=== PATIENT | male | born 1995 | race Caucasian/White ===

== ENCOUNTER 2019-02-13 08:15 | Inpatient (IN) | payer OTHER ==
[2019-02-13 08:33] VITALS: BMI 24.2
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
[2019-02-13] MEDS ORDERED: METHOCARBAMOL 500 MG TABLET PO PRN (09:45)
[2019-02-13] MEDS ORDERED: MAGNESIUM HYDROX 2400MG/30ML ORAL SUSPENSION 30 ML CUP PO PRN (09:45)
[2019-02-13] MEDS ORDERED: IBUPROFEN 400 MG TABLET (FP) PO PRN (09:45)
[2019-02-13] MEDS ORDERED: BISMUTH SUBSALICYLATE 524 MG/30 ML UD PO PRN (09:45)
[2019-02-13] MEDS ORDERED: cloNIDine HCL 0.1 MG TABLET PO PRN (09:45)
[2019-02-13] MEDS ORDERED: MAG HYDROX/AL HYDROX/SIMETH 30 ML UNIT-DOSE CUP PO PRN (09:45)
[2019-02-13] MEDS ORDERED: NICOTINE POLACRILEX 2 MG GUM BUC PRN (09:45)
[2019-02-13] MEDS ORDERED: MELATONIN 5 MG TABLETS PO PRN (09:45)
[2019-02-13] MEDS ORDERED: MAGNESIUM CITRATE 300 ML BOTTLE PO PRN (09:45)
[2019-02-13] MEDS ORDERED: ACETAMINOPHEN 325 MG TABLET (FP) PO PRN ×2 (09:45)
[2019-02-13] MEDS ORDERED: MENTHOL/PHENOL 1 EACH UD MM PRN (09:45)
[2019-02-13] MEDS ORDERED: METHADONE HCL 10 MG TABLET (FOR DETOX USE ONLY) PO ONE ×2 (09:54→23:00)
--- NOTE | 2019-02-13 10:26 | EKG ---
Test Reason : Blood Pressure : / mmHG Vent. Rate : 073 BPM Atrial Rate : 073 BPM P-R Int : 132 ms QRS Dur : 084 ms QT Int : 426 ms P-R-T Axes : 085 084 067 degrees QTc Int : 469 ms SINUS RHYTHM WITH MARKED SINUS ARRHYTHMIA OTHERWISE NORMAL ECG NO PREVIOUS ECGS AVAILABLE Confirmed by MICHAEL VALLADARES MD ([id number]) on 02/13/2019 10:25:53 AM Referred By: Confirmed By:MICHAEL VALLADARES MD
[2019-02-13] MEDS: diazePAM 5 MG TABLET PO PRN (11:06)
[2019-02-13] MEDS: PRENATAL VITAMINS W/ FOLIC ACID TABLET (FP) PO SCH (11:07)
[2019-02-13] MEDS: NICOTINE 21 MG/24 HOURS TOPICAL PATCH TD SCH (11:07)
[2019-02-13 14:06] LABS: HEMATOCRIT 39.8 % (35.4-49); HEMOGLOBIN 13.2 GM/dL (11.7-16.9); MCH 32.4 pg (25.7-33.7); MCHC 33.1 g/dl (32.0-35.9); MEAN CELL VOLUME 97.8 fl (80-96); MEAN PLT VOLUME 9.5 fl (7.5-11.1); PLATELET COUNT 270 K/MM3 (134-434); RBC 4.07 M/mm3 (4.00-5.60); RDW 13.8 % (11.9-15.9); WHITE BLOOD COUNT 5.2 K/mm3 (4.0-10.0)
[2019-02-13] MEDS: GABAPENTIN 300 MG CAPSULE (FP) PO SCH ×2 (14:15→22:18)
[2019-02-13 14:39] LABS: SICKLE CELL SCREEN NEGATIVE (NEGATIVE)
--- NOTE | 2019-02-13 17:32 | CONSULT ---
[facility] Psychiatric Consult - Data Date of interview: 02/13/19 Admission source: [facility] Identifying data: First admission to [facility] for this 23 y/o [place] male self-referred for detoxification (heroin, cocaine). Examined on . Patient is single, no children, homeless, unemployed and deprived of any source of income. Substance Abuse History: Confirmed by the patient in this session. Details in current [facility] report as follows : Smoking history: Current every day smoker. Have you smoked in the past 12 months: Yes. Aproximately how many cigarettes per day: 20. Cigars Per Day: 0. Hx Chewing Tobacco Use: No. Initiated information on smoking cessation: Yes. 'Breaking Loose' booklet given: . - Substance & Tx. History. Hx Alcohol Use: No. Hx Substance Use: Yes. Substance Use Type: Cocaine, Heroin. Hx Substance Use Treatment: Yes ([facility] 12/23). - Substances abused. Heroin. Substance route: Injection. Frequency: Daily. Amount used: 2 gram. Age of first use: 16. Date of last use : 02/13/19. Cocaine. Substance route: Injection. Frequency: Daily. Amount used: 1gram. Age of first use: 16. Date of last use: 02/13/19 Medical History: Remarkable for hepatitis C (not treated). Psychiatric History: Patient denies. Physical/Sexual Abuse/Trauma History: No reported history of abuse. Stressors : homelessness, unemployment, lack of vocational skills, no support network, separation from relatives, low level of education and addictions. Additional Comment: Urine drug screen results: DAWOOD-Cocaine, FEN-Fentanyl, MOP- Opiates, MTD-Methadone, BZO-Benzodiazepines. Noted. Mental Status Exam - Mental Status Exam Alert and Oriented to: Time, Place, Person Cognitive Function: Good Patient Appearance: Unkempt, Disheveled Mood: Nervous, Withdrawn, Anxious Affect: Mood Congruent, Constricted Patient Behavior: Fatigued, Cooperative Speech Pattern: Clear (more comfortable in [place] but able to make self understood by this consumer loan underwriter) Voice Loudness: Normal Thought Process: Goal Oriented Thought Disorder: Not Present Hallucinations: Denies Suicidal Ideation: Denies Homicidal Ideation: Denies Insight/Judgement: Poor Sleep: Fair Appetite: Fair Muscle strength/Tone: Normal Gait/Station: Other (not observed; patient in bed for entire interview) Psychiatric Findings - Problem List ([place] 1, 2,3) (1) Opioid dependence with withdrawal Current Visit: Yes Status: Acute (2) Cocaine dependence Current Visit: Yes Status: Chronic (3) Nicotine dependence Current Visit: Yes Status: Chronic (4) Substance induced mood disorder Current Visit: Yes Status: Chronic - Initial Treatment Plan Initial Treatment Plan: Psychoeducation. Sleep hygiene. Detoxification in progress. Support. NA/AA meetings. Relapse prevention (MAT choices) : briefly discussed with the patient. Groups. Observation.
[2019-02-13 17:46] LABS: PH,URINE 5.5 (5.0-8.0); URINE APPEARANCE CLEAR; URINE BILIRUBIN NEGATIVE (NEGATIVE); URINE COLOR DK YELLOW; URINE GLUCOSE (UA) NEGATIVE (NEGATIVE); URINE KETONE NEGATIVE (NEGATIVE); URINE LEUK ESTERASE NEGATIVE (NEGATIVE); URINE NITRITE NEGATIVE (NEGATIVE); URINE PROTEIN NEGATIVE (NEGATIVE)
[2019-02-13] MEDS: hydrOXYzine PAMOATE 25 MG CAPSULE (FP) PO PRN (22:17)
[2019-02-13] MEDS: THIAMINE HCL 100 MG TABLET (FP) PO SCH (22:19)
[2019-02-13 23:51] LABS: ALBUMIN 4.3 g/dl (3.4-5.0); ALK PHOS 92 U/L (45-117); ANION GAP 7 MMOL/L (8-16); BILIRUBIN,TOTAL 0.7 mg/dL (0.2-1); BLOOD UREA NITROGEN 15 mg/dL (7-18); CALCIUM 9.4 mg/dL (8.5-10.1); CHLORIDE 103 mmol/L (98-107); CO2 30 mmol/L (21-32); CREATININE 0.8 mg/dL (0.55-1.3); GLUCOSE,RANDOM 80 mg/dL (74-106); POTASSIUM 4.1 mmol/L (3.5-5.1); SGOT/AST 197 U/L (15-37); SGPT/ALT 392 U/L (13-61); SODIUM 139 mmol/L (136-145); TOT PROT 8.5 g/dl (6.4-8.2)
[2019-02-14] MEDS: GABAPENTIN 300 MG CAPSULE (FP) PO SCH ×3 (05:31→22:08)
[2019-02-14] MEDS: PRENATAL VITAMINS W/ FOLIC ACID TABLET (FP) PO SCH (09:53)
[2019-02-14] MEDS ORDERED: METHADONE HCL 10 MG TABLET (FOR DETOX USE ONLY) PO ONE (10:00)
[2019-02-14] MEDS: diazePAM 5 MG TABLET PO PRN ×2 (10:17→22:09)
[2019-02-14] MEDS: NICOTINE 21 MG/24 HOURS TOPICAL PATCH TD SCH (10:17)
--- NOTE | 2019-02-14 11:26 | PN ---
BHS COWS - Scale Resting Pulse: 0= [place] 80 or Below Sweatin=Flushed/Facial Moisture Restless Observation: 1= Difficult to Sit Still Pupil Size: 0= Normal to Room Light Bone or Joint Aches: 2= Severe Diffuse Aches Runny Nose/ Eye Tearin= Nasal Congestion GI Upset > 30mins: 2= Nausea/Diarrhea Tremor Observation of Outstretched Hands: 2= Slight Tremor Visible Yawning Observation: 1= 1-2x During Session Anxiety or Irritability: 2=Irritable/Anxious Goose Flesh Skin: 0=Smooth Skin COWS Score: 13 BHS Progress Note (SOAP) Subjective: Generalized pain, chills, abdominal cramps and interrupted sleep Objective: 02/14/19 11:24 Vital Signs 02/14/19 02/14/19 02/14/19 03:30 06:22 10:00 Temperature 96.7 F L 97.9 F Pulse Rate 78 76 Respiratory 18 18 16 Rate Blood Pressure 84/53 L 120/77 Laboratory Last Values WBC 5.2 K/mm3 (4.0-10.0) 02/13/19 10:50 RBC 4.07 M/mm3 (4.00-5.60) 02/13/19 10:50 Hgb 13.2 GM/dL (11.7-16.9) 02/13/19 10:50 Hct 39.8 % (35.4-49) 02/13/19 10:50 MCV 97.8 fl (80-96) H 02/13/19 10:50 MCH 32.4 pg (25.7-33.7) 02/13/19 10:50 MCHC 33.1 g/dl (32.0-35.9) 02/13/19 10:50 RDW 13.8 % (11.9-15.9) 02/13/19 10:50 Plt Count 270 K/MM3 (134-434) 02/13/19 10:50 MPV 9.5 fl (7.5-11.1) 02/13/19 10:50 Sickle Cell Screen Negative (NEGATIVE) 02/13/19 10:50 Sodium 139 mmol/L (136-145) 02/13/19 10:50 Potassium 4.1 mmol/L (3.5-5.1) 02/13/19 10:50 Chloride 103 mmol/L (98-107) 02/13/19 10:50 Carbon Dioxide 30 mmol/L (21-32) 02/13/19 10:50 Anion Gap 7 MMOL/L (8-16) L 02/13/19 10:50 BUN 15 mg/dL (7-18) 02/13/19 10:50 Creatinine 0.8 mg/dL (0.55-1.3) 02/13/19 10:50 Creat Clearance w eGFR 119.80 (>60) 02/13/19 10:50 Random Glucose 80 mg/dL (74-106) 02/13/19 10:50 Calcium 9.4 mg/dL (8.5-10.1) 02/13/19 10:50 Total Bilirubin 0.7 mg/dL (0.2-1) 02/13/19 10:50 AST 197 U/L (15-37) H 02/13/19 10:50 ALT 392 U/L (13-61) H 02/13/19 10:50 Alkaline Phosphatase 92 U/L (45-117) 02/13/19 10:50 Total Protein 8.5 g/dl (6.4-8.2) H 02/13/19 10:50 Albumin 4.3 g/dl (3.4-5.0) 02/13/19 10:50 Urine Color Dk yellow 02/13/19 16:00 Urine Appearance Clear 02/13/19 16:00 Urine pH 5.5 (5.0-8.0) 02/13/19 16:00 Ur Specific [place] 1.025 (1.010-1.035) 02/13/19 16:00 Urine Protein Negative (NEGATIVE) 02/13/19 16:00 Urine Glucose (UA) Negative (NEGATIVE) 02/13/19 16:00 Urine Ketones Negative (NEGATIVE) 02/13/19 16:00 Urine Blood Negative (NEGATIVE) 02/13/19 16:00 Urine Nitrite Negative (NEGATIVE) 02/13/19 16:00 Urine Bilirubin Negative (NEGATIVE) 02/13/19 16:00 Urine Urobilinogen 1.0 mg/dL (0.2-1.0) 02/13/19 16:00 Ur Leukocyte Esterase Negative (NEGATIVE) 02/13/19 16:00 RPR Titer Nonreactive (NONREACTIVE) 02/13/19 10:50 HIV 1&2 Antibody Screen Negative 02/13/19 10:50 HIV P24 Antigen Negative 02/13/19 10:50 Labs note Elevated liver enzymes-patient has untreated hepatitis C Assessment: 02/14/19 11:25 Withdrawal sx Plan: Continue detox Encourage oral fluid intake
[2019-02-14] MEDS: hydrOXYzine PAMOATE 25 MG CAPSULE (FP) PO PRN (13:29)
[2019-02-14] MEDS: THIAMINE HCL 100 MG TABLET (FP) PO SCH (22:08)
[2019-02-15] MEDS: GABAPENTIN 300 MG CAPSULE (FP) PO SCH (06:44)
[2019-02-15 09:18] VITALS: BP 123/65; PULSE 83; TEMP 98.4
[2019-02-15] MEDS ORDERED: METHADONE HCL 10 MG TABLET (FOR DETOX USE ONLY) PO ONE (10:00)
--- NOTE | 2019-02-15 11:01 | PN ---
[facility] Progress Note Note: Patient requested to sign out AMA. Patient states he does not feel this program is helping his substance abuse problem. Patient encouraged to stay in treatment but refused. Patient informed of risk factors of relapse and overdose/ with signing out AMA but refused to stay in treatment. Narcan Kit offered but patient states I don't have a regular pharmacy. Offered to send kit to [facility] but patient refused. Patient states " I will follow up with a MTD program tomorrow. I just need to go now". Patient encouraged to seek medical attention if symptoms of withdrawal worsen. Vital Signs Temperature 98.4 F 02/15/19 09:17 Pulse Rate 83 02/15/19 09:17 Respiratory Rate 17 02/15/19 09:17 Blood Pressure 123/65 02/15/19 09:17 O2 Sat by Pulse Oximetry (%)
--- NOTE | 2019-02-15 11:02 | DS ---
[facility] Detox Discharge Summary Admission Date: 02/13/19 Discharge Date: 02/15/19 - History Present History: Cocaine Dependence, Opioid Dependence - Physical Exam Results Vital Signs: Vital Signs Temperature 98.4 F 02/15/19 09:17 Pulse Rate 83 02/15/19 09:17 Respiratory Rate 17 02/15/19 09:17 Blood Pressure 123/65 02/15/19 09:17 O2 Sat by Pulse Oximetry (%) - Medication Discharge Medications: Ambulatory Orders Gabapentin [Neurontin -] 800 mg PO Q8H 02/13/19 - AMA Did Patient Leave Against Medical Advice: Yes
[2019-02-16] MEDS ORDERED: METHADONE HCL 10 MG TABLET (FOR DETOX USE ONLY) PO ONE (10:00)
[2019-02-17] MEDS ORDERED: METHADONE HCL 5 MG TABLET (FOR DETOX USE ONLY) PO ONE (06:00)
== END 2019-02-15 09:51 | disposition left against medical advice (07) | DRG 770 ==
LOC: YASAS 08:15 → Y6N 09:47
PROVIDERS: ADMIT Surgery; ATTEND Surgery
PROC: HZ2ZZZZ Detoxification Services for Substance Abuse Treatment (ICD-10-PCS; principal; 2019-02-13)
DX: F11.23 Opioid dependence with withdrawal (principal); F14.20 Cocaine dependence, uncomplicated; F17.210 Nicotine dependence, cigarettes, uncomplicated; F19.24 Other psychoactive substance dependence with psychoactive substance-induced mood disorder; F51.05 Insomnia due to other mental disorder; B18.2 Chronic viral hepatitis C; R94.5 Abnormal results of liver function studies; G62.9 Polyneuropathy, unspecified; M21.942 Unspecified acquired deformity of hand, left hand; Z87.828 Personal history of other (healed) physical injury and trauma; Z59.0 Homelessness
CPT/HCPCS: 36415; 80053; 81003; 85027; 85660; 86593; 87389; 93005; 93010; J0735

== ENCOUNTER 2019-03-17 17:10 | Inpatient (IN) | payer OTHER ==
[2019-03-17 18:09] VITALS: BMI 23.2
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
[2019-03-17] MEDS ORDERED: MENTHOL/PHENOL 1 EACH UD MM PRN (19:46)
[2019-03-17] MEDS ORDERED: MAGNESIUM CITRATE 300 ML BOTTLE PO PRN (19:46)
[2019-03-17] MEDS ORDERED: METHOCARBAMOL 500 MG TABLET PO PRN (19:46)
[2019-03-17] MEDS ORDERED: MAGNESIUM HYDROX 2400MG/30ML ORAL SUSPENSION 30 ML CUP PO PRN (19:46)
[2019-03-17] MEDS ORDERED: IBUPROFEN 400 MG TABLET (FP) PO PRN (19:46)
[2019-03-17] MEDS ORDERED: MELATONIN 5 MG TABLETS PO PRN (19:46)
[2019-03-17] MEDS ORDERED: MAG HYDROX/AL HYDROX/SIMETH 30 ML UNIT-DOSE CUP PO PRN (19:46)
[2019-03-17] MEDS ORDERED: ACETAMINOPHEN 325 MG TABLET (FP) PO PRN ×2 (19:46)
[2019-03-17] MEDS ORDERED: NICOTINE POLACRILEX 4 MG GUM BUC PRN (19:46)
[2019-03-17] MEDS ORDERED: cloNIDine HCL 0.1 MG TABLET PO PRN (19:46)
[2019-03-17] MEDS ORDERED: BISMUTH SUBSALICYLATE 524 MG/30 ML UD PO PRN (19:46)
[2019-03-17] MEDS ORDERED: METHADONE HCL 10 MG TABLET (FOR DETOX USE ONLY) PO ONE ×2 (20:00→23:00)
[2019-03-17] MEDS: THIAMINE HCL 100 MG TABLET (FP) PO SCH (22:12)
[2019-03-18 02:24] LABS: EPI CELLS 4.9 /HPF (0-5/HPF); URINE APPEARANCE TURBID; URINE BACTERIA 6.4 /hpf (NEGATIVE); URINE BILIRUBIN NEGATIVE (NEGATIVE); URINE CASTS 14 /lpf (0-8); URINE COLOR YELLOW; URINE GLUCOSE (UA) NEGATIVE (NEGATIVE); URINE KETONE TRACE (NEGATIVE); URINE LEUK ESTERASE NEGATIVE (NEGATIVE); URINE NITRITE NEGATIVE (NEGATIVE); URINE PROTEIN 1+ (NEGATIVE); URINE RBC 2 /hpf (0-4); URINE WBC 1 /hpf (0-5)
[2019-03-18 09:58] LABS: HEMATOCRIT 40.2 % (35.4-49); MCH 31.6 pg (25.7-33.7); MCHC 32.3 g/dl (32.0-35.9); MEAN CELL VOLUME 97.9 fl (80-96); MEAN PLT VOLUME 10.2 fl (7.5-11.1); PLATELET COUNT 176 K/MM3 (134-434); RBC 4.11 M/mm3 (4.00-5.60); RDW 13.8 % (11.9-15.9); WHITE BLOOD COUNT 4.4 K/mm3 (4.0-10.0)
[2019-03-18] MEDS ORDERED: METHADONE HCL 10 MG TABLET (FOR DETOX USE ONLY) PO ONE (10:00)
[2019-03-18 10:09] LABS: ALBUMIN 3.9 g/dl (3.4-5.0); CALCIUM 9.1 mg/dL (8.5-10.1); CREATININE 0.8 mg/dL (0.55-1.3); POTASSIUM 3.4 mmol/L (3.5-5.1); TOT PROT 7.2 g/dl (6.4-8.2)
[2019-03-18] MEDS: clonazePAM 0.5 MG TABLET PO PRN (10:52)
[2019-03-18] MEDS: PRENATAL VITAMINS W/ FOLIC ACID TABLET (FP) PO SCH (10:52)
[2019-03-18] MEDS: hydrOXYzine PAMOATE 25 MG CAPSULE (FP) PO PRN (10:52)
[2019-03-18] MEDS: NICOTINE 21 MG/24 HOURS TOPICAL PATCH TD SCH (10:53)
--- NOTE | 2019-03-18 11:16 | PN ---
BHS COWS - Scale Resting Pulse: 0= [place] 80 or Below Sweatin= Chills/Flushing Restless Observation: 1= Difficult to Sit Still Pupil Size: 1= Pupils >than Normal Bone or Joint Aches: 1= Mild Discomfort Runny Nose/ Eye Tearin= Nasal Congestion GI Upset > 30mins: 1= Stomach Cramp Tremor Observation of Outstretched Hands: 1= Tremor [place], Not Seen Yawning Observation: 1= 1-2x During Session Anxiety or Irritability: 1=Feels Anxious/Irritable Goose Flesh Skin: 0=Smooth Skin COWS Score: 9 BHS Progress Note (SOAP) Subjective: doing well with methadone detox regimen discuss medication assisted maintenance treatment program Objective: 03/18/19 11:18 Vital Signs Temperature 97.7 F 03/18/19 09:17 Pulse Rate 66 03/18/19 09:17 Respiratory Rate 18 03/18/19 09:17 Blood Pressure 101/60 03/18/19 09:17 O2 Sat by Pulse Oximetry (%) Laboratory Last Values WBC 4.4 K/mm3 (4.0-10.0) 03/18/19 07:00 RBC 4.11 M/mm3 (4.00-5.60) 03/18/19 07:00 Hgb 13.0 GM/dL (11.7-16.9) 03/18/19 07:00 Hct 40.2 % (35.4-49) 03/18/19 07:00 MCV 97.9 fl (80-96) H 03/18/19 07:00 MCH 31.6 pg (25.7-33.7) 03/18/19 07:00 MCHC 32.3 g/dl (32.0-35.9) 03/18/19 07:00 RDW 13.8 % (11.9-15.9) 03/18/19 07:00 Plt Count 176 K/MM3 (134-434) D 03/18/19 07:00 MPV 10.2 fl (7.5-11.1) 03/18/19 07:00 Sodium 141 mmol/L (136-145) 03/18/19 07:00 Potassium 3.4 mmol/L (3.5-5.1) L 03/18/19 07:00 Chloride 106 mmol/L (98-107) 03/18/19 07:00 Carbon Dioxide 29 mmol/L (21-32) 03/18/19 07:00 Anion Gap 6 MMOL/L (8-16) L 03/18/19 07:00 BUN 14 mg/dL (7-18) 03/18/19 07:00 Creatinine 0.8 mg/dL (0.55-1.3) 03/18/19 07:00 Est GFR (CKD-EPI)AfAm 145.93 03/18/19 07:00 Est GFR (CKD-EPI)NonAf 125.91 03/18/19 07:00 Random Glucose 68 mg/dL (74-106) L 03/18/19 07:00 Calcium 9.1 mg/dL (8.5-10.1) 03/18/19 07:00 Total Bilirubin 1.0 mg/dL (0.2-1) 03/18/19 07:00 AST 62 U/L (15-37) H 03/18/19 07:00 ALT 134 U/L (13-61) H 03/18/19 07:00 Alkaline Phosphatase 75 U/L (45-117) 03/18/19 07:00 Total Protein 7.2 g/dl (6.4-8.2) 03/18/19 07:00 Albumin 3.9 g/dl (3.4-5.0) 03/18/19 07:00 Urine Color Yellow 03/18/19 00:00 Urine Appearance Turbid 03/18/19 00:00 Urine pH 6.0 (5.0-8.0) 03/18/19 00:00 Ur Specific [place] 1.031 (1.010-1.035) 03/18/19 00:00 Urine Protein 1+ (NEGATIVE) H 03/18/19 00:00 Urine Glucose (UA) Negative (NEGATIVE) 03/18/19 00:00 Urine Ketones Trace (NEGATIVE) H 03/18/19 00:00 Urine Blood Negative (NEGATIVE) 03/18/19 00:00 Urine Nitrite Negative (NEGATIVE) 03/18/19 00:00 Urine Bilirubin Negative (NEGATIVE) 03/18/19 00:00 Urine Urobilinogen 1.0 mg/dL (0.2-1.0) 03/18/19 00:00 Ur Leukocyte Esterase Negative (NEGATIVE) 03/18/19 00:00 Urine WBC (Auto) 1 /hpf (0-5) 03/18/19 00:00 Urine RBC (Auto) 2 /hpf (0-4) 03/18/19 00:00 Urine Casts (Auto) 14 /lpf (0-8) 03/18/19 00:00 U Epithel Cells (Auto) 4.9 /HPF (0-5/HPF) 03/18/19 00:00 Urine Bacteria (Auto) 6.4 /hpf (NEGATIVE) 03/18/19 00:00 lab noted low K+ K+ supplement Assessment: 03/18/19 11:18 opiate withdrawal sx Plan: continue detox
[2019-03-18] MEDS: POTASSIUM CHLORIDE ORAL LIQUID 20 MEQ/15 ML PO SCH ×2 (12:46→17:27)
[2019-03-18] MEDS: THIAMINE HCL 100 MG TABLET (FP) PO SCH (22:35)
[2019-03-19] MEDS ORDERED: METHADONE HCL 10 MG TABLET (FOR DETOX USE ONLY) PO ONE (10:00)
[2019-03-19] MEDS: PRENATAL VITAMINS W/ FOLIC ACID TABLET (FP) PO SCH (10:19)
[2019-03-19] MEDS: hydrOXYzine PAMOATE 25 MG CAPSULE (FP) PO PRN (10:19)
[2019-03-19] MEDS: clonazePAM 0.5 MG TABLET PO PRN (10:19)
[2019-03-19] MEDS: NICOTINE 21 MG/24 HOURS TOPICAL PATCH TD SCH (10:20)
--- NOTE | 2019-03-19 12:51 | PN ---
[facility] COWS - Scale Resting Pulse: 0= [place] 80 or Below Sweatin= Chills/Flushing Restless Observation: 1= Difficult to Sit Still Pupil Size: 0= Normal to Room Light Bone or Joint Aches: 1= Mild Discomfort Runny Nose/ Eye Tearin= None GI Upset > 30mins: 1= Stomach Cramp Tremor Observation of Outstretched Hands: 0= None Yawning Observation: 1= 1-2x During Session Anxiety or Irritability: 0= None Goose Flesh Skin: 0=Smooth Skin COWS Score: 5 [facility] Progress Note (SOAP) Subjective: feeling anxious reporting that long history of anxiety treated by psychiatrist patient requests to be seen by a psychiatrist Objective: 03/19/19 12:48 Vital Signs Temperature 98.7 F 03/19/19 09:38 Pulse Rate 70 03/19/19 09:38 Respiratory Rate 18 03/19/19 09:38 Blood Pressure 96/59 L 03/19/19 09:38 O2 Sat by Pulse Oximetry (%) Laboratory Last Values WBC 4.4 K/mm3 (4.0-10.0) 03/18/19 07:00 RBC 4.11 M/mm3 (4.00-5.60) 03/18/19 07:00 Hgb 13.0 GM/dL (11.7-16.9) 03/18/19 07:00 Hct 40.2 % (35.4-49) 03/18/19 07:00 MCV 97.9 fl (80-96) H 03/18/19 07:00 MCH 31.6 pg (25.7-33.7) 03/18/19 07:00 MCHC 32.3 g/dl (32.0-35.9) 03/18/19 07:00 RDW 13.8 % (11.9-15.9) 03/18/19 07:00 Plt Count 176 K/MM3 (134-434) D 03/18/19 07:00 MPV 10.2 fl (7.5-11.1) 03/18/19 07:00 Sodium 141 mmol/L (136-145) 03/18/19 07:00 Potassium 4.0 mmol/L (3.5-5.1) 03/19/19 07:00 Chloride 106 mmol/L (98-107) 03/18/19 07:00 Carbon Dioxide 29 mmol/L (21-32) 03/18/19 07:00 Anion Gap 6 MMOL/L (8-16) L 03/18/19 07:00 BUN 14 mg/dL (7-18) 03/18/19 07:00 Creatinine 0.8 mg/dL (0.55-1.3) 03/18/19 07:00 Est GFR (CKD-EPI)AfAm 145.93 03/18/19 07:00 Est GFR (CKD-EPI)NonAf 125.91 03/18/19 07:00 Random Glucose 68 mg/dL (74-106) L 03/18/19 07:00 Calcium 9.1 mg/dL (8.5-10.1) 03/18/19 07:00 Total Bilirubin 1.0 mg/dL (0.2-1) 03/18/19 07:00 AST 62 U/L (15-37) H 03/18/19 07:00 ALT 134 U/L (13-61) H 03/18/19 07:00 Alkaline Phosphatase 75 U/L (45-117) 03/18/19 07:00 Total Protein 7.2 g/dl (6.4-8.2) 03/18/19 07:00 Albumin 3.9 g/dl (3.4-5.0) 03/18/19 07:00 Urine Color Yellow 03/18/19 00:00 Urine Appearance Turbid 03/18/19 00:00 Urine pH 6.0 (5.0-8.0) 03/18/19 00:00 Ur Specific Mosier 1.031 (1.010-1.035) 03/18/19 00:00 Urine Protein 1+ (NEGATIVE) H 03/18/19 00:00 Urine Glucose (UA) Negative (NEGATIVE) 03/18/19 00:00 Urine Ketones Trace (NEGATIVE) H 03/18/19 00:00 Urine Blood Negative (NEGATIVE) 03/18/19 00:00 Urine Nitrite Negative (NEGATIVE) 03/18/19 00:00 Urine Bilirubin Negative (NEGATIVE) 03/18/19 00:00 Urine Urobilinogen 1.0 mg/dL (0.2-1.0) 03/18/19 00:00 Ur Leukocyte Esterase Negative (NEGATIVE) 03/18/19 00:00 Urine WBC (Auto) 1 /hpf (0-5) 03/18/19 00:00 Urine RBC (Auto) 2 /hpf (0-4) 03/18/19 00:00 Urine Casts (Auto) 14 /lpf (0-8) 03/18/19 00:00 U Epithel Cells (Auto) 4.9 /HPF (0-5/HPF) 03/18/19 00:00 Urine Bacteria (Auto) 6.4 /hpf (NEGATIVE) 03/18/19 00:00 RPR Titer Nonreactive (NONREACTIVE) 03/18/19 07:00 lab noted repeat ua Assessment: 03/19/19 12:50 opiate withdrawal sx Plan: continue detox encourage medication assisted maintenance treatment program
[2019-03-19 14:30] VITALS: TEMP 98.6
[2019-03-19 18:03] VITALS: BP 110/57; PULSE 81
[2019-03-20] MEDS ORDERED: METHADONE HCL 10 MG TABLET (FOR DETOX USE ONLY) PO ONE (10:00)
[2019-03-21] MEDS ORDERED: METHADONE HCL 5 MG TABLET (FOR DETOX USE ONLY) PO ONE (06:00)
== END 2019-03-19 18:05 | disposition left against medical advice (07) | DRG 770 ==
LOC: YASAS 17:10 → Y3N 19:56
PROVIDERS: ADMIT Surgery; ATTEND Surgery
PROC: HZ2ZZZZ Detoxification Services for Substance Abuse Treatment (ICD-10-PCS; principal; 2019-03-17)
DX: F11.23 Opioid dependence with withdrawal (principal); F14.20 Cocaine dependence, uncomplicated; F17.210 Nicotine dependence, cigarettes, uncomplicated
CPT/HCPCS: 36415; 80053; 81003; 84132; 85027; 86593; J0735

== ENCOUNTER 2019-04-08 10:35 | Inpatient (IN) | payer SELFPAY ==
[2019-04-08 14:14] VITALS: BMI 24.2
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
[2019-04-08] MEDS ORDERED: ACETAMINOPHEN 325 MG TABLET (FP) PO PRN ×2 (15:23)
[2019-04-08] MEDS ORDERED: MENTHOL/PHENOL 1 EACH UD MM PRN (15:23)
[2019-04-08] MEDS ORDERED: cloNIDine HCL 0.1 MG TABLET PO PRN (15:23)
[2019-04-08] MEDS ORDERED: MAG HYDROX/AL HYDROX/SIMETH 30 ML UNIT-DOSE CUP PO PRN (15:23)
[2019-04-08] MEDS ORDERED: MAGNESIUM CITRATE 300 ML BOTTLE PO PRN (15:23)
[2019-04-08] MEDS ORDERED: METHOCARBAMOL 500 MG TABLET PO PRN (15:23)
[2019-04-08] MEDS ORDERED: IBUPROFEN 400 MG TABLET (FP) PO PRN (15:23)
[2019-04-08] MEDS ORDERED: MAGNESIUM HYDROX 2400MG/30ML ORAL SUSPENSION 30 ML CUP PO PRN (15:23)
[2019-04-08] MEDS ORDERED: hydrOXYzine PAMOATE 25 MG CAPSULE (FP) PO PRN (15:23)
[2019-04-08] MEDS ORDERED: NICOTINE POLACRILEX 2 MG GUM BUC PRN (15:23)
[2019-04-08] MEDS ORDERED: BISMUTH SUBSALICYLATE 524 MG/30 ML UD PO PRN (15:23)
[2019-04-08] MEDS ORDERED: MELATONIN 5 MG TABLETS PO PRN (15:23)
[2019-04-08] MEDS ORDERED: NICOTINE 21 MG/24 HOURS TOPICAL PATCH TD SCH (16:30)
[2019-04-08] MEDS ORDERED: METHADONE HCL 10 MG TABLET (FOR DETOX USE ONLY) PO ONE ×2 (16:30→23:00)
[2019-04-08 16:41] LABS: ALBUMIN 4.4 g/dl (3.4-5.0); BILIRUBIN,TOTAL 0.5 mg/dL (0.2-1); CALCIUM 9.6 mg/dL (8.5-10.1); CREATININE 0.8 mg/dL (0.55-1.3); POTASSIUM 4.5 mmol/L (3.5-5.1); TOT PROT 8.2 g/dl (6.4-8.2)
[2019-04-08 16:43] LABS: HEMATOCRIT 40.2 % (35.4-49); HEMOGLOBIN 13.3 GM/dL (11.7-16.9); MCH 32.4 pg (25.7-33.7); MCHC 33.2 g/dl (32.0-35.9); MEAN CELL VOLUME 97.7 fl (80-96); MEAN PLT VOLUME 9.6 fl (7.5-11.1); PLATELET COUNT 187 K/MM3 (134-434); RBC 4.11 M/mm3 (4.00-5.60); RDW 13.4 % (11.9-15.9); WHITE BLOOD COUNT 4.8 K/mm3 (4.0-10.0)
[2019-04-08 18:06] VITALS: BP 135/75; PULSE 83; TEMP 99
--- NOTE | 2019-04-08 19:22 | PN ---
[facility] Progress Note Note: Pt was in counselors office stating he know he just arrived but needs to leave facility [facility]. proposal manager writer, counselor and nursing staff and retail route supervisor all tried to ask pt his reason for leaving and the consequence of relapse even offer to be moved to another floor..but pt insisted on leaving quietly and signed out AMA. security escorted pt off the unit, all his belonging given to pt.
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
[2019-04-08] MEDS ORDERED: THIAMINE HCL 100 MG TABLET (FP) PO SCH (22:00)
[2019-04-08] MEDS ORDERED: GABAPENTIN 300 MG CAPSULE (FP) PO SCH (22:00)
[2019-04-09] MEDS ORDERED: PRENATAL VITAMINS W/ FOLIC ACID TABLET (FP) PO SCH (10:00)
[2019-04-09] MEDS ORDERED: METHADONE HCL 10 MG TABLET (FOR DETOX USE ONLY) PO ONE (10:00)
[2019-04-10] MEDS ORDERED: METHADONE HCL 10 MG TABLET (FOR DETOX USE ONLY) PO ONE (10:00)
[2019-04-11] MEDS ORDERED: METHADONE HCL 10 MG TABLET (FOR DETOX USE ONLY) PO ONE (10:00)
[2019-04-11] MEDS ORDERED: METHADONE (DETOX) 10 MG, METHADONE (DETOX) 5 MG PO ONE (10:00)
[2019-04-12] MEDS ORDERED: METHADONE HCL 5 MG TABLET (FOR DETOX USE ONLY) PO ONE (06:00)
[2019-04-12] MEDS ORDERED: METHADONE HCL 10 MG TABLET (FOR DETOX USE ONLY) PO ONE (10:00)
== END 2019-04-08 18:55 | disposition left against medical advice (07) | DRG 770 ==
LOC: YASAS 10:35 → Y6N 15:38
PROVIDERS: ADMIT Surgery; ATTEND Surgery
PROC: HZ2ZZZZ Detoxification Services for Substance Abuse Treatment (ICD-10-PCS; principal; 2019-04-08)
DX: F11.23 Opioid dependence with withdrawal (principal); F14.20 Cocaine dependence, uncomplicated; F17.210 Nicotine dependence, cigarettes, uncomplicated; F19.24 Other psychoactive substance dependence with psychoactive substance-induced mood disorder; R63.4 Abnormal weight loss; G62.9 Polyneuropathy, unspecified; B18.2 Chronic viral hepatitis C; Z91.013 Allergy to seafood; Z59.0 Homelessness
CPT/HCPCS: 36415; 80053; 85027; 86593